=== PATIENT | female | born 1945 | race Caucasian/White ===

== ENCOUNTER 2022-06-06 07:06 | Day surgery (SDC) | payer MEDICARE, BC ==
[~2022-06-06 07:06] MED LIST: Lactated Ringers 1,000 ML IV SCH; Lidocaine 1%/Sod Bicarbonate in NS 8.4% 1 ML Syringe IDERM PRN; Sodium Chloride 0.9% 10 ML Syringe FLUSH PRN; Sodium Chloride 0.9% 10 ML Syringe FLUSH SCH
[2022-06-06] MEDS ORDERED: Propofol 200 MG/20 ML SDV ONE (07:31)
[2022-06-06] MEDS ORDERED: Midazolam 1 MG/ML 2 ML SDV ONE (07:32)
[2022-06-06] MEDS ORDERED: fentaNYL 100 MCG/2 ML SDV ONE ×2 (07:32→10:48)
[2022-06-06] MEDS ORDERED: fentaNYL 100 MCG/2 ML SDV IVPUSH PRN (07:34)
[2022-06-06] MEDS ORDERED: Ondansetron 4 MG/2 ML SDV IVPUSH PRN (07:34)
[2022-06-06] MEDS ORDERED: HYDROmorphone 0.5 MG/0.5 ML Syringe IVPUSH PRN (07:34)
[2022-06-06] MEDS ORDERED: ceFAZolin 2 GM Vial ONE (07:38)
[2022-06-06] MEDS ORDERED: Ondansetron 4 MG/2 ML SDV ONE (07:38)
[2022-06-06] MEDS ORDERED: EPINEPHrine 1 MG/ML SDV ONE (08:22)
[2022-06-06] MEDS ORDERED: Ropivacaine 0.5% 5 MG/ML 30 ML SDV ONE (08:22)
[2022-06-06] MEDS ORDERED: Metoprolol Succinate 50 MG Tab.ER PO ONE (08:30)
[2022-06-06] MEDS ORDERED: Phenylephrine HCl In 0.9% NaCl 1 MG/10 ML Vial ONE (09:50)
[2022-06-06] MEDS ORDERED: ePHEDrine 50 MG/ML SDV ONE (09:53)
[2022-06-06] MEDS ORDERED: Acetaminophen/HYDROcodone 325-5 MG Tab PO PRN (10:09)
[2022-06-06] MEDS ORDERED: Lactated Ringers 1,000 ML ONE (10:18)
[2022-06-06] MEDS: Tranexamic Acid 1,000 MG/10 ML Vial ONE ×2 (10:20→10:50)
[2022-06-06] MEDS: Morphine 8 MG, EPINEPHrine 0.3 MG, Cefuroxime 750 MG, Ketorolac 30 MG, Sodium Chloride ... PRN ×10 (10:20→10:40)
[2022-06-06] MEDS: Vancomycin 1 GM SDV ONE ×2 (10:20→10:50)
[2022-06-06] MEDS ORDERED: Dexmedetomidine 200 MCG/2 ML SDV ONE (10:40)
[2022-06-06] MEDS ORDERED: Ketorolac 15 MG/ML SDV ONE (10:47)
== END 2022-06-06 14:18 | disposition home or self-care (01) ==
LOC: JD.SDS 07:06
PROVIDERS: ATTEND Orthopaedic Surgery
DX: M17.11 Unilateral primary osteoarthritis, right knee (principal); I10 Essential (primary) hypertension; J44.9 Chronic obstructive pulmonary disease, unspecified; Z98.890 Other specified postprocedural states; Z90.710 Acquired absence of both cervix and uterus; Z79.899 Other long term (current) drug therapy; Z88.2 Allergy status to sulfonamides; Z88.0 Allergy status to penicillin; Z88.8 Allergy status to other drugs, medicaments and biological substances; Z91.048 Other nonmedicinal substance allergy status; Z79.82 Long term (current) use of aspirin
CPT/HCPCS: 0055T; 27447; 73560; 97110; 97116; 97161; A9270; C1713; C1776; J0171; J0690; J0697; J1885; J2250; J2270; J2405; J2704; J2795; J3010; J3370; J7120; 01402; 64450; 76942

== ENCOUNTER 2022-08-18 09:53 | Day surgery (SDC) | payer MEDICARE, BC ==
[~2022-08-18 09:53] MED LIST changes: +EPINEPHrine 1 MG/ML SDV ONE; -Lactated Ringers 1,000 ML IV SCH; -Lidocaine 1%/Sod Bicarbonate in NS 8.4% 1 ML Syringe IDERM PRN; +Ropivacaine 0.5% 5 MG/ML 30 ML SDV ONE; -Sodium Chloride 0.9% 10 ML Syringe FLUSH PRN; -Sodium Chloride 0.9% 10 ML Syringe FLUSH SCH
[2022-08-18] MEDS ORDERED: Midazolam 1 MG/ML 2 ML SDV ONE (10:03)
[2022-08-18] MEDS ORDERED: Lidocaine 1% 5 ML VIAL ONE (10:03)
[2022-08-18] MEDS ORDERED: fentaNYL 100 MCG/2 ML SDV ONE (10:03)
[2022-08-18] MEDS ORDERED: Propofol 200 MG/20 ML SDV ONE (10:06)
[2022-08-18] MEDS ORDERED: Lidocaine 1%/Sod Bicarbonate in NS 8.4% 1 ML Syringe IDERM PRN (10:44)
[2022-08-18] MEDS ORDERED: Sodium Chloride 0.9% 10 ML Syringe FLUSH PRN (10:44)
[2022-08-18] MEDS ORDERED: Lactated Ringers 1,000 ML IV SCH (10:45)
[2022-08-18] MEDS ORDERED: Labetalol 100 MG/20 ML MDV ONE (11:00)
[2022-08-18] MEDS ORDERED: Acetaminophen/HYDROcodone 325-5 MG Tab PO ONE (12:21)
[2022-08-18] MEDS ORDERED: Sodium Chloride 0.9% 10 ML Syringe FLUSH SCH (21:00)
== END 2022-08-18 12:35 | disposition home or self-care (01) ==
LOC: JD.SDS 09:53
PROVIDERS: ATTEND Orthopaedic Surgery
DX: T84.82XA Fibrosis due to internal orthopedic prosthetic devices, implants and grafts, initial encounter (principal); I10 Essential (primary) hypertension; E78.5 Hyperlipidemia, unspecified; J44.9 Chronic obstructive pulmonary disease, unspecified; Z98.890 Other specified postprocedural states; Z88.0 Allergy status to penicillin; Z79.899 Other long term (current) drug therapy; Z88.2 Allergy status to sulfonamides; Z88.8 Allergy status to other drugs, medicaments and biological substances
CPT/HCPCS: 01380; 64447; A9270-GY; J0171; J2250; J2704; J2795; J3010; J3490; J7120